=== PATIENT | male | born 1955 | race Caucasian/White ===

== ENCOUNTER 2016-02-17 09:54 | Inpatient (IN) | payer OTHER ==
[2016-02-17] MEDS ORDERED: IOPAMIDOL 370 (76%) 100 ML VIAL IV ONE (09:55)
[2016-02-17 10:31] LABS: BASO % 0.2 % (0.2-1.0); EOS # 0.1 (0.0-0.5); EOS % 0.8 % (0.9-2.9); HEMATOCRIT 43.3 % (32.0-52.0); HEMOGLOBIN 14.6 gm/l (14.0-18.0); IMM NEUT% 0.3 % (0-1); LYMPH # 0.3 (1.0-4.8); LYMPH % 4.9 % (15-45); MEAN CELL VOLUME 96.4 fl (80.0-94.0); MEAN CORPUSCULAR HEMOGLOBIN 32.5 pg (27.0-31.0); MEAN CORPUSCULAR HGB CONC 33.7 g/dl (33.0-37.0); MEAN PLATELET VOLUME 9.8 fl (7.4-10.4); MONO # 0.5 (0.0-0.8); NEUT % 84.8 % (43-75); PLATELET COUNT 200 K/mm3 (130-400); RED CELL DISTRIBUTION WIDTH 13.4 % (11.5-14.5)
[2016-02-17 10:41] LABS: ALB/GLOB RATIO 1.9 (>1.0); ALBUMIN 4.7 gm/dL (3.5-5.7); CALCIUM 9.5 mg/dL (8.6-10.3)
[2016-02-17] MEDS ORDERED: HYDROMORPHONE HCL 0.5 MG/0.5 ML SYRINGE ONE ×2 (11:24→13:24)
[2016-02-17] MEDS ORDERED: ONDANSETRON 4 MG/2ML 2 ML VIAL ONE ×2 (11:24→14:47)
[2016-02-17] MEDS ORDERED: LACTATED RINGERS 1,000 ML ONE ×2 (11:24→12:47)
--- NOTE | 2016-02-17 12:02 | CT ---
Exam Type: ABD/PELVIS W/ CON Date and Time: 02/17/2016 10:48 AM Clinical information: History of small bowel obstruction with abdomen pain. Comparison: 08/04/2015. Procedure: Imaging device: sambaash Aquilion [address] scanner 1 mm axial images were obtained through the abdomen and pelvis. Stacked reconstructed 3, 4 and 5 mm images were photographed in the axial coronal and sagittal planes. No oral contrast was utilized for this examination. 100 ml of Isovue-370 was injected intravenously. Exam: with intravenous contrast. FINDINGS: Lung bases:The visualized lung bases appear to be appropriate with no mass, effusion or consolidation visualized. Liver: There is a vague low-attenuation focus again identified within the posterior aspect of the right hepatic lobe measuring approximately 2.1 cm in size. This is stable from the appearance on prior examination. Spleen: The spleen is homogeneous and does not appear to be enlarged. Gallbladder: Calcified gallstones are identified within the dependent portion of the gallbladder. Pancreas: Normal without enlargement or evidence of adjacent inflammatory changes. Adrenal glands: Normal without enlargement or evidence of adjacent inflammatory changes. Abdominal aorta: The aorta is of normal caliber and appears to be without significant atherosclerotic disease. Kidneys: Bilateral renal low-attenuation foci are present consistent with renal cysts. No evidence of hydronephrosis is visualized. Bowel structures: There are dilated loops of small bowel identified within the central and left aspects of the abdomen with small bowel air-fluid levels. A relative transition is seen within the central/anterior aspect of the pelvis with what appears to be a thickened segment of mid ileum, seen on axial image #89. No evidence of free air is visualized. The colon appears to be decompressed. Incidental note is made of moderate fluid distention of the stomach. Appendix: The appendix is well-visualized and appears to be of normal caliber. No periappendiceal inflammatory changes or CT findings of appendicitis are currently observed. Bladder: The bladder is of normal contour. No wall thickening or significant distention is observed. Hernia: A fat filled umbilical hernia suggested. Adenopathy: No significant enlarged adenopathy is visualized. Osseous structures: There is the suggestion of partial fusion of the sacroiliac joints. Pelvic structures: No discrete pelvic abnormalities are visualized in this examination. IMPRESSION: 1. Dilated loops of small bowel within the central and left portions of the abdomen with a relative transition seen within the anterior/central pelvis in the region of the mid ileum. The findings suggest an early or partial small bowel obstruction with an appearance similar to that seen on prior examination. No significant free fluid or free air is visualized with the colon appearing to be completely decompressed. 2. Moderate fluid distention of the stomach. 3. Cholelithiasis. 4. A stable 2.1 cm low-attenuation focus within the posterior right hepatic lobe. 5. Bilateral renal cysts. 6. Suggested partial fusion of the sacroiliac joints, stable from the prior exam.
[2016-02-17] MEDS ORDERED: MORPHINE SULFATE 2 MG/ML SYRINGE IV PRN (15:20)
[2016-02-17] MEDS ORDERED: PHENOL PO PRN (15:20)
[2016-02-17] MEDS ORDERED: SODIUM PHENOLATE PO PRN (15:20)
[2016-02-17] MEDS ORDERED: KETOROLAC TROMETHAMINE 30 MG/ML 1 ML VIAL IV PRN (15:20)
[2016-02-17] MEDS ORDERED: ONDANSETRON 4 MG/2ML 2 ML VIAL IV PRN (15:20)
[2016-02-17] MEDS ORDERED: BLISTEX LIPSTICK 1 EACH TP PRN (15:20)
[2016-02-17] MEDS ORDERED: BOT PO PRN (15:20)
[2016-02-17 15:24] VITALS: BMI 43.0
[2016-02-17] MEDS ORDERED: PUMP TUBING ONE (15:53)
[2016-02-17] MEDS: LACTATED RINGERS 1,000 ML IV SCH ×2 (16:02→23:53)
--- NOTE | 2016-02-17 16:57 | RAD ---
History: Cough with wheezing. Comparison: 02/23/2015. Technique: 2 views Findings: 2 views of the chest were performed demonstrating an apparent indwelling nasogastric tube with the tip extending into the left upper quadrant and off the current film. The heart size is borderline prominent. There is no focal infiltrate, effusion or pneumothorax is seen. The hilar and mediastinal structures are intact. Impression: 1. An indwelling nasogastric tube with the tip appearing to proceed into the left upper quadrant and off the current film. 2. Borderline cardiomegaly without overt failure.
[2016-02-17] MEDS: PANTOPRAZOLE SODIUM 40 MG VIAL IV SCH (17:06)
[2016-02-17] MEDS: MENTHOL/CETYLPYRD 1 EACH LOZENGE PO PRN ×2 (17:06→22:57)
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
[2016-02-17] MEDS: ALBUTEROL/IPRATROPIUM 2.5/0.5 MG 3 ML/EACH DOSE NEB SCH (20:04)
[2016-02-18] MEDS: ALBUTEROL/IPRATROPIUM 2.5/0.5 MG 3 ML/EACH DOSE NEB SCH ×5 (00:07→23:33)
[2016-02-18 06:23] LABS: HEMATOCRIT 35.9 % (32.0-52.0); HEMOGLOBIN 11.9 gm/l (14.0-18.0); MEAN CORPUSCULAR HEMOGLOBIN 32.2 pg (27.0-31.0); MEAN CORPUSCULAR HGB CONC 33.1 g/dl (33.0-37.0)
[2016-02-18 06:47] LABS: ALB/GLOB RATIO 1.4 (>1.0); ALBUMIN 3.7 gm/dL (3.5-5.7); CALCIUM 8.3 mg/dL (8.6-10.3)
[2016-02-18] MEDS: LACTATED RINGERS 1,000 ML IV SCH ×2 (07:40→16:46)
[2016-02-18] MEDS: MENTHOL/CETYLPYRD 1 EACH LOZENGE PO PRN ×6 (07:40→17:45)
[2016-02-18] MEDS ORDERED: IOPAMIDOL 300 (61%) 150 ML VIAL IV ONE (08:02)
--- NOTE | 2016-02-18 08:27 | CT ---
Exam Type: ABD/PELVIS W/ CON Date and Time: 02/18/2016 5:00 AM Clinical information: Follow-up small bowel obstruction. Comparison: 02/17/2016. Procedure: Imaging device: [employer] Aquilion [address] scanner 1 mm axial images were obtained through the abdomen and pelvis. Stacked reconstructed 3, 4 and 5 mm images were photographed in the axial coronal and sagittal planes. No oral contrast was utilized for this examination. 125 ml of Isovue-300 was injected intravenously. Exam: with intravenous contrast. FINDINGS: Lung bases: Scans through the lung bases demonstrate a suggested bibasilar atelectasis. No effusion or pneumothorax is visualized. Liver: There is reidentification of the vague low-attenuation focus within the posterior right hepatic lobe, stable from its appearance on prior exam. Spleen: The spleen is homogeneous and does not appear to be enlarged. Gallbladder: Note is again made of multiple calcified gallstones. Pancreas: Normal without enlargement or evidence of adjacent inflammatory changes. Adrenal glands: Normal without enlargement or evidence of adjacent inflammatory changes. Abdominal aorta: The aorta is of normal caliber and appears to be without significant atherosclerotic disease. Kidneys: Bilateral renal low-attenuation foci are present. No significant hydronephrosis is visualized. Bowel structures: There is the suggestion of an indwelling nasogastric tube, though the tip projects just proximal to the gastroesophageal junction. The colon appears to be decompressed as well as the distal small bowel loops. There are dilated thickened loops of small bowel seen within the central and left mid abdomen with an appearance similar to the appearance on prior examination. A relative transition is identified within the anterior aspect of the central pelvis. No definite findings of free air are observed. Appendix: The appendix is well-visualized and appears to be of normal caliber. No periappendiceal inflammatory changes or CT findings of appendicitis are currently observed. Bladder: The bladder is partially decompressed with indwelling contrast material, likely from the prior scan. Hernia: A factor umbilical hernia is observed. Adenopathy: No significant enlarged adenopathy is visualized. Osseous structures: Note is again made of a suggested partial fusion of sacroiliac joints. Pelvic structures: No discrete pelvic abnormalities are visualized in this examination. IMPRESSION: 1. Persistent dilated and thickened loops of small bowel within the central and left portions of the abdomen with a relative transition within the anterior aspect of the pelvis. The appearance is not significantly changed from the appearance on prior examination. No evidence of free air is visualized. 2. An indwelling nasogastric tube with the tip appearing to project within the distal esophagus just proximal to the gastroesophageal junction. 3. A stable appearance of the vague low-attenuation focus within the posterior right hepatic lobe. 4. Cholelithiasis. 5. Probable bilateral renal cysts. 6. A normal appearance of the appendix. 7. A fat filled umbilical hernia. 8. Bibasilar atelectasis. 9. Suggested partial fusion of the sacroiliac joints.
[2016-02-18] MEDS ORDERED: FLU VACC 2016-17 (36MO-64Y)/PF 60 MCG/0.5 ML SYRINGE IM V ONE (09:00)
--- NOTE | 2016-02-18 12:53 | PDOC43 ---
- Subjective Subjective: Reports Flatus, Reports Pain Tolerable, Reports Bowel Movement, Denies Nausea - Objective Vital Signs Temperature 98.7 F 02/18/16 12:00 Pulse Rate 97 02/18/16 12:00 Respiratory Rate 18 02/18/16 12:00 Blood Pressure 129/77 02/18/16 12:00 O2 Saturation by Pulse Oximetry 95 02/18/16 12:00 Oxygen Delivery Method Room Air Oxygen Flow Rate 0 Laboratory 02/18/16 05:30 02/18/16 05:30 02/18/16 05:30 RBC 3.70 L MCV 97.0 H MCH 32.2 H ESR 17 H Calcium 8.3 L Total Bilirubin 1.1 H AST 11 L C-Reactive Protein 10.0 H Total Protein 6.3 L Active Medication Orders Category Date Time Status Ciprofloxacin IV 400 mg [Cipro IV 400 mg] 400 mg Med 02/18/16 21:00 Ordered Premix (D5W) 200 ml 1 each IV Q12HR Methylpred Sod Succinate [Solu-Medrol] Med 02/18/16 17:00 Ordered 40 mg IV Q8HR Metronidazole 500 mg/Ns 100 ml [Flagyl 500 mg IV] 500 Med 02/18/16 17:00 Ordered mg Premix (NS) 100 ml 1 each IV Q8HR Sodium Chloride 0.9% Flush [Normal Saline 10ml Flush] Med 02/17/16 14:26 Active 10 ml IV PRN PRN Sodium Chloride 0.9% Flush [Normal Saline 10ml Flush] Med 02/17/16 17:00 Active 10 ml IV Q8HR Sodium Chloride 0.9% Flush [Normal Saline 10ml Flush] Med 02/17/16 17:00 Active 10 ml IV Q8HR Intake and Output 02/17/16 02/18/16 02/19/16 06:59 06:59 06:59 Intake Total 180 Output Total 200 Balance -20 General: Alert, Oriented x3 Abdomen: Soft, Tenderness (left sided), Mild Distention Psych/Mental Status: Normal Affect - Assessment/ Plan (1) Small bowel obstruction Status: Active Assessment/ Plan: Small bowel thickening consistent with recurrent inflammatory condition. Will start steroids with antibiotics. Will remove NGT with him having bowel function. It may need to be replaced. (2) Sleep apnea Status: Active Assessment/ Plan: C-pap. (3) Asthma Qualifiers: Asthma severity: mild persistent Asthma complication type: uncomplicated Qualifier Code: (J45.30) Mild persistent asthma, uncomplicated Status: Acute Assessment/ Plan: Chest x-ray yesterday was OK. Continue nebulizer for now.
[2016-02-18] MEDS: PANTOPRAZOLE SODIUM 40 MG VIAL IV SCH (15:52)
[2016-02-18] MEDS: METRONIDAZOLE 500 MG/NS 100 ML 500 MG in Premix (NS) 100 ml 1 EACH IV SCH (16:46)
[2016-02-18] MEDS: METHYLPRED SOD SUCCINATE 40 MG VIAL IV SCH (17:42)
[2016-02-18] MEDS: CIPROFLOXACIN IV 400 MG 400 MG in Premix (D5W) 200 ml 1 EACH IV SCH (20:33)
[2016-02-19] MEDS: METRONIDAZOLE 500 MG/NS 100 ML 500 MG in Premix (NS) 100 ml 1 EACH IV SCH ×3 (01:19→17:11)
[2016-02-19] MEDS: METHYLPRED SOD SUCCINATE 40 MG VIAL IV SCH ×3 (01:19→17:14)
[2016-02-19] MEDS: LACTATED RINGERS 1,000 ML IV SCH ×3 (04:39→20:47)
[2016-02-19] MEDS: ALBUTEROL/IPRATROPIUM 2.5/0.5 MG 3 ML/EACH DOSE NEB SCH ×4 (05:00→23:40)
[2016-02-19 06:01] LABS: HEMATOCRIT 38.2 % (32.0-52.0); HEMOGLOBIN 12.9 gm/l (14.0-18.0); MEAN CELL VOLUME 96.2 fl (80.0-94.0); MEAN CORPUSCULAR HEMOGLOBIN 32.5 pg (27.0-31.0); MEAN CORPUSCULAR HGB CONC 33.8 g/dl (33.0-37.0); RED CELL DISTRIBUTION WIDTH 13.1 % (11.5-14.5)
[2016-02-19 06:34] LABS: ALB/GLOB RATIO 1.3 (>1.0); CALCIUM 10.3 mg/dL (8.6-10.3)
[2016-02-19] MEDS ORDERED: PUMP TUBING ONE ×2 (09:10→11:01)
[2016-02-19] MEDS: CIPROFLOXACIN IV 400 MG 400 MG in Premix (D5W) 200 ml 1 EACH IV SCH ×2 (09:45→20:47)
--- NOTE | 2016-02-19 13:10 | RAD ---
ABDOMEN 2 VIEWS W PA CHEST COMPARISON: CT abdomen and pelvis with contrast 02/18/2016. HISTORY: Follow-up small bowel obstruction. FINDINGS: Views: Frontal chest, supine abdomen, upright abdomen. Lungs: Normal. Heart and vessels: Normal heart size. Elongated thoracic aorta. Trachea and bronchi: Normal. Mediastinum and marcus: Normal. Costophrenic sulci: Normal. Chest wall: Normal. Pneumoperitoneum: None. The bowel gas pattern: No change. Small bowel distention up to 7.3 cm in the left upper quadrant. Solid organs: Normal. Calcification: Normal. Bones: Normal. IMPRESSION: No change in small bowel obstruction with distention on the left at the 7.3 cm.
[2016-02-19] MEDS: PANTOPRAZOLE SODIUM 40 MG VIAL IV SCH (17:11)
--- NOTE | 2016-02-19 17:52 | PDOC43 ---
- Subjective Subjective: Reports Bowel Movement, Denies Flatus, Denies Vomitting, Denies Nausea - Objective Vital Signs Temperature 98.4 F 02/19/16 16:00 Pulse Rate 103 02/19/16 16:00 Respiratory Rate 16 02/19/16 16:00 Blood Pressure 138/84 02/19/16 16:00 O2 Saturation by Pulse Oximetry 95 02/19/16 16:00 Oxygen Delivery Method Room Air Oxygen Flow Rate 0 Laboratory 02/19/16 05:20 02/19/16 05:20 02/19/16 05:20 RBC 3.97 L MCV 96.2 H MCH 32.5 H AST 12 L C-Reactive Protein 10.0 H Active Medication Orders Category Date Time Status Ciprofloxacin IV 400 mg [Cipro IV 400 mg] 400 mg Med 02/18/16 21:00 Active Premix (D5W) 200 ml 1 each IV Q12HR Lactated Ringers 1,000 ml Med 02/18/16 12:55 Active IV 100 mls/hr Methylpred Sod Succinate [Solu-Medrol] Med 02/18/16 17:00 Active 40 mg IV Q8HR Metronidazole 500 mg/Ns 100 ml [Flagyl 500 mg IV] 500 Med 02/18/16 17:00 Active mg Premix (NS) 100 ml 1 each IV Q8HR Sodium Chloride 0.9% Flush [Normal Saline 10ml Flush] Med 02/17/16 14:26 Active 10 ml IV PRN PRN Sodium Chloride 0.9% Flush [Normal Saline 10ml Flush] Med 02/17/16 17:00 Active 10 ml IV Q8HR Intake and Output 02/18/16 02/19/16 02/20/16 06:59 06:59 06:59 Intake Total 180 5092 480 Output Total 200 565 750 Balance -20 4527 -270 Tubes and Drains Output NG/OG Output 65 General: Alert, Oriented x3 Abdomen: Soft, Mild Distention, No Tenderness Psych/Mental Status: Normal Affect - Assessment/ Plan (1) Small bowel obstruction Status: Active Assessment/ Plan: X-ray looks unchanged, but he feels like it is resolving. Continue steroids. Will trial some clear liquids. Recheck CT scan with gastograffin in am. (2) Sleep apnea Status: Active Assessment/ Plan: C-pap. (3) Asthma Qualifiers: Asthma severity: mild persistent Asthma complication type: uncomplicated Qualifier Code: (J45.30) Mild persistent asthma, uncomplicated Status: Acute Assessment/ Plan: Chest x-ray yesterday was OK. Continue nebulizer for now.
[2016-02-20] MEDS: METRONIDAZOLE 500 MG/NS 100 ML 500 MG in Premix (NS) 100 ml 1 EACH IV SCH ×2 (01:25→10:15)
[2016-02-20] MEDS: METHYLPRED SOD SUCCINATE 40 MG VIAL IV SCH ×2 (01:25→10:16)
[2016-02-20] MEDS: ALBUTEROL/IPRATROPIUM 2.5/0.5 MG 3 ML/EACH DOSE NEB SCH ×2 (05:53→12:45)
[2016-02-20] MEDS: LACTATED RINGERS 1,000 ML IV SCH ×2 (06:51→10:15)
[2016-02-20 07:00] LABS: HEMATOCRIT 36.6 % (32.0-52.0); HEMOGLOBIN 12.6 gm/l (14.0-18.0); MEAN CELL VOLUME 96.1 fl (80.0-94.0); MEAN CORPUSCULAR HEMOGLOBIN 33.1 pg (27.0-31.0); MEAN CORPUSCULAR HGB CONC 34.4 g/dl (33.0-37.0); RED CELL DISTRIBUTION WIDTH 13.6 % (11.5-14.5)
[2016-02-20 07:23] LABS: ALB/GLOB RATIO 1.8 (>1.0); ALBUMIN 3.9 gm/dL (3.5-5.7); CALCIUM 8.9 mg/dL (8.6-10.3)
[2016-02-20 07:25] LABS: C-REACTIVE PROTEIN 3.7 mg/dl (<1.0)
[2016-02-20] MEDS ORDERED: IOPAMIDOL 300 (61%) 150 ML VIAL IV ONE (10:00)
[2016-02-20] MEDS: CIPROFLOXACIN IV 400 MG 400 MG in Premix (D5W) 200 ml 1 EACH IV SCH (10:15)
--- NOTE | 2016-02-20 10:56 | CT ---
CT ABDOMEN AND PELVIS WITH CONTRAST HISTORY: Follow-up obstruction. TECHNIQUE: Following intravenous administration of 150 mL Isovue-300, contiguous axial images were acquired from the lung bases to the ischial tuberosities. Oral contrast was not administered. COMPARISON: 02/18/2016, 02/17/2016. FINDINGS: LUNG BASES: Minor atelectatic change. No gross airspace disease or pleural effusion. LIVER: Redemonstration of low-attenuation lesion of the posterior right hepatic lobe, grossly unchanged when compared to imaging going as far back as July 2013, perhaps related to hemangioma formation. Smaller lesions along the left hepatic lobe also stable. SPLEEN: No focal lesion. PANCREAS: No focal lesion. ADRENAL GLANDS: No mass effect. KIDNEYS: Stable appearance of bilateral renal cysts. No collecting system dilatation. GALLBLADDER: Changes of cholelithiasis. No gross biliary dilatation. BOWEL: Interval decrease in wall edema of multiple left-sided loops of small bowel with residual prominence of anterior left-sided bowel loops. Fatty infiltration of proximal loops of ileum is again noted. The colon is partially decompressed with minor changes of diverticulosis. Minor rectal fecal load is seen. APPENDIX: Normal gas-filled appendix. PELVIC ORGANS: No gross mass effect. FREE FLUID: No gross free fluid identified. ABDOMINOPELVIC LYMPH NODES: No abnormally enlarged lymph nodes identified. ABDOMINAL AORTA: Normal caliber. OSSEOUS STRUCTURES: Findings of lower lumbar facet degeneration. ANTERIOR ABDOMINAL WALL: Small fatty umbilical hernia, with small supraumbilical hernia protrusion of a portion of small bowel. IMPRESSION: 1. While there is residual small bowel dilatation and anterior of left-sided abdomen, there is minor partial decompression of bowel loops as well as significant interval decrease in wall edema, gradual transition again seen at the anterior pelvis. Portion of a dilated small bowel loop protrudes into a small ventral hernia at the supraumbilical aspect. 2. No free fluid or free air. 3. Stable hepatic and renal lesions. 4. Normal appendix. 5. Cholelithiasis. 6. Minor colonic diverticulosis without diverticulitis.
[2016-02-20 11:54] VITALS: BP 159/93
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
== END 2016-02-20 14:21 | disposition home or self-care (01) | DRG 390 ==
LOC: ED 09:54 → MS 13:56
PROVIDERS: ADMIT Surgery; ATTEND Surgery
DX: K56.60 Unspecified intestinal obstruction (principal); E66.01 Morbid (severe) obesity due to excess calories; E78.5 Hyperlipidemia, unspecified; I10 Essential (primary) hypertension; J45.909 Unspecified asthma, uncomplicated; G47.30 Sleep apnea, unspecified; K21.9 Gastro-esophageal reflux disease without esophagitis; K58.0 Irritable bowel syndrome with diarrhea; K43.2 Incisional hernia without obstruction or gangrene; K80.20 Calculus of gallbladder without cholecystitis without obstruction